=== PATIENT | male | born 2005 | race African-American/Black ===

== ENCOUNTER 2024-10-13 19:42 | Emergency (ER) | payer MEDICAID ==
[~2024-10-13] VITALS: Ht 188 cm; Wt 74.2 kg
[2024-10-13 19:46] VITALS: BP 118/66; TEMP 36.8; O2SAT 99
[2024-10-13 19:47] VITALS: PULSE 96; RESP 20; O2SAT 96
[2024-10-13] MEDS ORDERED: DOXY100T2 MT (20:41)
[2024-10-13] MEDS ORDERED: IBUP-2028 MT (20:41)
[2024-10-13] MEDS ORDERED: TOPUD PO (20:41)
[2024-10-13] MEDS: CEFTRIAXONE SODIUM 500MG VIAL IM ONE (20:57)
[2024-10-13] MEDS: KETOROLAC 30MG/ML VIAL IM ONE (20:58)
[2024-10-13] MEDS: ACETAMINOPHEN 325MG TABLET PO ONE (20:58)
[2024-10-13] MEDS: LIDOCAINE HCL 1% 20ML VIAL INFIL ONE (20:59)
[2024-10-13 21:25] LABS: CLARITY URINE CLEAR (CLEAR); COLOR URINE YELLOW (YELLOW); GLUCOSE URINE NEGATIVE (NEGATIVE); KETONES URINE TRACE (NEGATIVE); LEUKOCYTE ESTERASE URINE NEGATIVE (NEGATIVE); NITRITE URINE NEGATIVE (NEGATIVE); OCCULT BLOOD URINE NEGATIVE (NEGATIVE); PROTEIN URINE 1+ (NEGATIVE); SPECIFIC GRAVITY URINE 1.019 (1.005-1.030); UROBILINOGEN URINE 0.2 E.U./dL (0.2-1.0)
[2024-10-13 21:46] LABS: BACTERIA URINE 1+; RBC URINE NONE SEEN /hpf (0-2); SQUAMOUS EPITHELIAL CELL URINE 1+ /lpf (RARE/1+); WBC URINE 0-2 /hpf (0-2)
== END 2024-10-13 22:01 | disposition home or self-care (01) ==
LOC: ER 19:42
DX: S93.601A Unspecified sprain of right foot, initial encounter (principal); J45.909 Unspecified asthma, uncomplicated; Z20.2 Contact with and (suspected) exposure to infections with a predominantly sexual mode of transmission; Z79.899 Other long term (current) drug therapy; Z88.1 Allergy status to other antibiotic agents; X58.XXXA Exposure to other specified factors, initial encounter; Y93.02 Activity, running; Y92.89 Other specified places as the place of occurrence of the external cause; Y99.8 Other external cause status
CPT/HCPCS: 87491; 87591; 81003; 87086; 73630; 96372; 99284; J0696; J1885; Z7610 ×2